=== PATIENT | female | born 1955 | race African-American/Black ===

== ENCOUNTER 2016-09-04 01:33 | Emergency (ER) | payer MEDICAID, MEDICARE, OTHER ==
[~2016-09-04] VITALS: Ht 172.7 cm; Wt 82.0 kg
[~2016-09-04 01:33] MED LIST: GLIP5TAB12 PO; METF-240 PO
[2016-09-04 03:11] VITALS: BP 144/90
== END 2016-09-04 04:00 | disposition home or self-care (01) ==
LOC: ER 01:57
DX: K64.4 Residual hemorrhoidal skin tags (principal); K59.00 Constipation, unspecified; K62.89 Other specified diseases of anus and rectum; S80.211A Abrasion, right knee, initial encounter; X58.XXXA Exposure to other specified factors, initial encounter; Y93.9 Activity, unspecified; Y92.89 Other specified places as the place of occurrence of the external cause; Y99.9 Unspecified external cause status; F17.210 Nicotine dependence, cigarettes, uncomplicated
CPT/HCPCS: 99283

== ENCOUNTER 2016-10-29 01:42 | Emergency (ER) | payer MEDICARE ==
[~2016-10-29] VITALS: Ht 172.7 cm; Wt 86.0 kg
[~2016-10-29 01:42] MED LIST changes: -METF-240 PO; +METF500T4 PO
[2016-10-29] MEDS ORDERED: ACETAMINOPHEN 650MG/20.3ML UDC PO ONE (04:30)
[2016-10-29 07:40] VITALS: BP 119/70
== END 2016-10-29 08:30 | disposition home or self-care (01) ==
LOC: ER 01:43
DX: K64.8 Other hemorrhoids (principal); K64.4 Residual hemorrhoidal skin tags; E11.9 Type 2 diabetes mellitus without complications; I10 Essential (primary) hypertension
CPT/HCPCS: 99283

== ENCOUNTER 2016-11-12 00:27 | Emergency (ER) | payer MEDICARE ==
[~2016-11-12] VITALS: Ht 170.2 cm; Wt 82.0 kg
[2016-11-12 08:47] VITALS: BP 145/78
== END 2016-11-12 08:49 | disposition home or self-care (01) ==
LOC: ER 00:35
DX: K64.4 Residual hemorrhoidal skin tags (principal); I10 Essential (primary) hypertension; E11.9 Type 2 diabetes mellitus without complications; F17.200 Nicotine dependence, unspecified, uncomplicated; Z98.890 Other specified postprocedural states
CPT/HCPCS: 99283

== ENCOUNTER 2017-03-05 21:55 | Emergency (ER) | payer MEDICARE ==
[~2017-03-05] VITALS: Ht 172.7 cm; Wt 82.0 kg
[2017-03-05 22:11] VITALS: BP 157/79
== END 2017-03-06 01:10 | disposition left against medical advice (07) ==
LOC: ER 21:55
DX: Z53.21 Procedure and treatment not carried out due to patient leaving prior to being seen by health care provider (principal)

== ENCOUNTER 2017-03-06 11:00 | Emergency (ER) | payer MEDICARE ==
[~2017-03-06] VITALS: Ht 172.7 cm; Wt 84.0 kg
[2017-03-06 11:28] VITALS: BP 121/79
== END 2017-03-06 15:30 | disposition left against medical advice (07) ==
LOC: ER 14:16
DX: Z53.21 Procedure and treatment not carried out due to patient leaving prior to being seen by health care provider (principal); I10 Essential (primary) hypertension; E11.9 Type 2 diabetes mellitus without complications; F17.210 Nicotine dependence, cigarettes, uncomplicated

== ENCOUNTER 2017-03-06 16:06 | Emergency (ER) | payer MEDICARE | END 2017-03-06 18:08 | disposition left against medical advice (07) | LOC: ER 18:01 | DX: Z53.21 Procedure and treatment not carried out due to patient leaving prior to being seen by health care provider (principal) ==

== ENCOUNTER 2017-03-11 22:24 | Emergency (ER) | payer SELFPAY ==
[~2017-03-11] VITALS: Ht 165.1 cm; Wt 95.5 kg
[2017-03-11 23:46] LABS: CHLORIDE 108 mEq/L (98-107)
[2017-03-11 23:48] LABS: BASOPHILS % 0.8 % (0.0-2.0); EOSINOPHILS % 7.1 % (0.0-5.0); HEMOGLOBIN. 12.2 g/dL (12.0-16.0); LYMPHOCYTES % 27.1 % (20.0-50.0); MEAN CORPUSCULAR HEMOGLOBIN 25.9 pg (28.0-32.0); MEAN CORPUSCULAR VOLUME 76.5 fL (81.0-99.0); MEAN PLATELET VOLUME 7.6 fl (7.4-10.4); MONOCYTES % 9.4 % (2.0-8.0); NEUTROPHILS % 55.6 % (40.0-76.0); PLATELET 263 x1000/uL (130-400); RED BLOOD CELL COUNT 4.71 mill/uL (4.2-5.4); RED CELL DISTRIBUTION WIDTH 15.7 % (11.6-14.6)
[2017-03-11 23:56] LABS: CARBON DIOXIDE 27 mEq/L (21-32)
[2017-03-12] MEDS ORDERED: POTASSIUM CHLORIDE 20MEQ TABLET SR PO ONE (00:30)
[2017-03-13] MEDS ORDERED: PERMETHRIN 5% CREAM 60GM TOP ONE ×2 (10:15→14:30)
[2017-03-13] MEDS ORDERED: PIPERONYL/PYRETHRINS (RID)120 ML SHAMPOO TOP ONE (14:30)
[2017-03-13] MEDS ORDERED: ALBUTEROL (0.083%) 2.5MG/3ML NEB HHN STA (19:15)
[2017-03-13 19:53] LABS: BASOPHILS % 0.6 % (0.0-2.0); EOSINOPHILS % 4.4 % (0.0-5.0); HEMATOCRIT. 34.1 % (36.0-48.0); HEMOGLOBIN. 11.5 g/dL (12.0-16.0); LYMPHOCYTES % 28.1 % (20.0-50.0); MEAN CORPUSCULAR HEMOGLOBIN 25.9 pg (28.0-32.0); MEAN CORPUSCULAR VOLUME 76.5 fL (81.0-99.0); MEAN PLATELET VOLUME 7.6 fl (7.4-10.4); MONOCYTES % 8.9 % (2.0-8.0); PLATELET 257 x1000/uL (130-400); RED BLOOD CELL COUNT 4.45 mill/uL (4.2-5.4); RED CELL DISTRIBUTION WIDTH 15.7 % (11.6-14.6)
[2017-03-13 20:00] LABS: INR 1.1
[2017-03-13 20:06] LABS: CARBON DIOXIDE 29 mEq/L (21-32); CHLORIDE 107 mEq/L (98-107); CREATINE KINASE 187 IU/L (26-192)
[2017-03-13 20:07] LABS: TROPONIN I < 0.02 ng/mL (0.00-0.04)
[2017-03-13 20:09] LABS: CREATINE KINASE MB FRACTION 1.4 ng/mL (0.5-3.6)
[2017-03-14] MEDS ORDERED: POTASSIUM CHLORIDE 20MEQ TABLET SR PO ONE (00:15)
[2017-03-14 07:49] VITALS: BP 131/72
== END 2017-03-14 09:12 | disposition home or self-care (01) ==
LOC: ER 22:24 → CANRESERV 03-13 18:38 → ENRESERV 03-13 18:38 → CANBEDREQ 03-13 21:38 → ER 03-14 09:12
DX: R06.00 Dyspnea, unspecified (principal); I10 Essential (primary) hypertension; F20.9 Schizophrenia, unspecified; E11.9 Type 2 diabetes mellitus without complications; F17.210 Nicotine dependence, cigarettes, uncomplicated
CPT/HCPCS: 36415; 71010; 80053; 82550; 82553; 83690; 83880; 84443; 84484; 85025; 85610; 85730; 93005; 94640; 99285; 99406; J7611

== ENCOUNTER 2017-08-20 01:03 | Emergency (ER) | payer SELFPAY ==
[~2017-08-20] VITALS: Ht 172.7 cm; Wt 79.4 kg
[2017-08-20 04:31] VITALS: BP 142/66
== END 2017-08-20 04:53 | disposition home or self-care (01) ==
LOC: ER 01:03
DX: S20.469A Insect bite (nonvenomous) of unspecified back wall of thorax, initial encounter (principal); S00.06XA Insect bite (nonvenomous) of scalp, initial encounter; E11.9 Type 2 diabetes mellitus without complications; F20.9 Schizophrenia, unspecified; F17.200 Nicotine dependence, unspecified, uncomplicated; Z79.84 Long term (current) use of oral hypoglycemic drugs; W57.XXXA Bitten or stung by nonvenomous insect and other nonvenomous arthropods, initial encounter; Y93.89 Activity, other specified; Y92.013 Bedroom of single-family (private) house as the place of occurrence of the external cause
CPT/HCPCS: 99283

== ENCOUNTER 2017-08-23 06:19 | Emergency (ER) | payer SELFPAY ==
[~2017-08-23] VITALS: Ht 165.1 cm; Wt 64.0 kg
[2017-08-23 06:21] VITALS: BP 146/88
== END 2017-08-23 07:21 | disposition home or self-care (01) ==
LOC: ER 06:19
DX: R21 Rash and other nonspecific skin eruption (principal); E11.9 Type 2 diabetes mellitus without complications; F20.9 Schizophrenia, unspecified; I10 Essential (primary) hypertension; Z79.84 Long term (current) use of oral hypoglycemic drugs
CPT/HCPCS: 99283

== ENCOUNTER 2017-09-11 01:15 | Emergency (ER) | payer SELFPAY ==
[~2017-09-11] VITALS: Ht 172.7 cm; Wt 81.0 kg
[2017-09-11] MEDS ORDERED: DIPHENHYDRAMINE 25MG CAPSULE PO ONE (08:30)
[2017-09-11 10:26] VITALS: BP 159/87
== END 2017-09-11 10:31 | disposition home or self-care (01) ==
LOC: ER 01:20
DX: T14.8XXA Other injury of unspecified body region, initial encounter (principal); W57.XXXA Bitten or stung by nonvenomous insect and other nonvenomous arthropods, initial encounter; Y93.89 Activity, other specified; Y92.89 Other specified places as the place of occurrence of the external cause; L29.9 Pruritus, unspecified; E11.9 Type 2 diabetes mellitus without complications; I10 Essential (primary) hypertension; Z79.84 Long term (current) use of oral hypoglycemic drugs
CPT/HCPCS: 99283; Z7610; Q0163

== ENCOUNTER 2017-09-28 22:44 | Emergency (ER) | payer SELFPAY ==
[~2017-09-28] VITALS: Ht 172.7 cm; Wt 79.0 kg
[2017-09-29 04:22] VITALS: BP 135/75
== END 2017-09-29 05:10 | disposition home or self-care (01) ==
LOC: ER 22:44
DX: R21 Rash and other nonspecific skin eruption (principal); E11.9 Type 2 diabetes mellitus without complications; F17.200 Nicotine dependence, unspecified, uncomplicated; Z79.84 Long term (current) use of oral hypoglycemic drugs
CPT/HCPCS: 99283

== ENCOUNTER 2017-10-03 20:10 | Emergency (ER) | payer SELFPAY ==
[~2017-10-03] VITALS: Ht 167.6 cm; Wt 81.0 kg
[2017-10-03 20:14] VITALS: BP 148/74
== END 2017-10-04 01:00 | disposition left against medical advice (07) ==
LOC: ER 20:10
DX: I10 Essential (primary) hypertension (principal); E11.9 Type 2 diabetes mellitus without complications; L29.9 Pruritus, unspecified; F17.200 Nicotine dependence, unspecified, uncomplicated; Z53.21 Procedure and treatment not carried out due to patient leaving prior to being seen by health care provider

== ENCOUNTER 2017-10-04 06:30 | Emergency (ER) | payer SELFPAY ==
[~2017-10-04] VITALS: Ht 172.7 cm; Wt 79.0 kg
[2017-10-04] MEDS ORDERED: IBUPROFEN 600MG TABLET PO ONE (09:30)
[2017-10-04 10:14] VITALS: BP 164/83
== END 2017-10-04 10:34 | disposition home or self-care (01) ==
LOC: ER 06:49
DX: L29.9 Pruritus, unspecified (principal); Z76.0 Encounter for issue of repeat prescription; F20.9 Schizophrenia, unspecified; I10 Essential (primary) hypertension; E11.9 Type 2 diabetes mellitus without complications; F17.200 Nicotine dependence, unspecified, uncomplicated; Z79.84 Long term (current) use of oral hypoglycemic drugs
CPT/HCPCS: 82962; 99283

== ENCOUNTER 2017-10-06 19:32 | Emergency (ER) | payer SELFPAY ==
[~2017-10-06] VITALS: Ht 167.6 cm; Wt 63.5 kg
[2017-10-07] MEDS ORDERED: GABAPENTIN 300MG CAPSULE PO ONE (05:45)
[2017-10-07 07:19] VITALS: BP 163/82
== END 2017-10-07 08:02 | disposition home or self-care (01) ==
LOC: ER 19:42
DX: E11.40 Type 2 diabetes mellitus with diabetic neuropathy, unspecified (principal); I10 Essential (primary) hypertension; M79.642 Pain in left hand; Z79.84 Long term (current) use of oral hypoglycemic drugs
CPT/HCPCS: 82962; 99283; Z7610

== ENCOUNTER 2017-10-09 00:36 | Emergency (ER) | payer SELFPAY ==
[~2017-10-09] VITALS: Ht 172.7 cm; Wt 79.1 kg
[2017-10-09] MEDS ORDERED: DIPHENHYDRAMINE 25MG CAPSULE PO ONE (06:30)
[2017-10-09 06:34] VITALS: BP 127/78
== END 2017-10-09 07:22 | disposition home or self-care (01) ==
LOC: ER 01:25
DX: R21 Rash and other nonspecific skin eruption (principal); E11.9 Type 2 diabetes mellitus without complications; F20.9 Schizophrenia, unspecified; F17.200 Nicotine dependence, unspecified, uncomplicated; Z79.84 Long term (current) use of oral hypoglycemic drugs
CPT/HCPCS: 99283; Z7610; Q0163

== ENCOUNTER 2017-10-12 22:46 | Emergency (ER) | payer MEDICARE ==
[~2017-10-12] VITALS: Ht 167.6 cm; Wt 80.0 kg
[2017-10-13 01:15] VITALS: BP 150/77
== END 2017-10-13 01:58 | disposition home or self-care (01) ==
LOC: ER 22:46
DX: R21 Rash and other nonspecific skin eruption (principal); E11.40 Type 2 diabetes mellitus with diabetic neuropathy, unspecified; F20.9 Schizophrenia, unspecified; Z79.84 Long term (current) use of oral hypoglycemic drugs
CPT/HCPCS: 99283

== ENCOUNTER 2017-10-22 06:08 | Emergency (ER) | payer SELFPAY ==
[~2017-10-22] VITALS: Ht 172.7 cm; Wt 77.0 kg
[2017-10-22] MEDS ORDERED: KETOROLAC 30MG/ML VIAL IM ONE (09:45)
[2017-10-22] MEDS ORDERED: DIPHENHYDRAMINE 25MG CAPSULE PO ONE (09:45)
[2017-10-22 10:05] VITALS: BP 143/83
== END 2017-10-22 10:05 | disposition home or self-care (01) ==
LOC: ER 06:08
DX: T14.8XXA Other injury of unspecified body region, initial encounter (principal); W57.XXXA Bitten or stung by nonvenomous insect and other nonvenomous arthropods, initial encounter; R51 Headache; F20.9 Schizophrenia, unspecified; E11.9 Type 2 diabetes mellitus without complications; Z79.84 Long term (current) use of oral hypoglycemic drugs; Y93.89 Activity, other specified; Y92.89 Other specified places as the place of occurrence of the external cause
CPT/HCPCS: 96372; 99283; J1885; Z7610; Q0163

== ENCOUNTER 2017-10-26 10:25 | Emergency (ER) | payer MEDICARE ==
[~2017-10-26] VITALS: Ht 172.7 cm; Wt 79.0 kg
[2017-10-26 11:32] VITALS: BP 126/77
[2017-10-26] MEDS ORDERED: KETOROLAC 60MG/2ML VIAL IM ONE (12:15)
== END 2017-10-26 12:51 | disposition home or self-care (01) ==
LOC: ER 11:59
DX: R51 Headache (principal); I10 Essential (primary) hypertension; E11.9 Type 2 diabetes mellitus without complications; Z79.84 Long term (current) use of oral hypoglycemic drugs; Z98.890 Other specified postprocedural states
CPT/HCPCS: 96372; 99283; J1885

== ENCOUNTER 2017-10-29 01:16 | Emergency (ER) | payer MEDICARE ==
[~2017-10-29] VITALS: Ht 172.7 cm; Wt 79.0 kg
[2017-10-29] MEDS ORDERED: KETOROLAC 30MG/ML VIAL IV STA (02:40)
[2017-10-29] MEDS ORDERED: CYCLOBENZAPRINE 10MG TABLET PO SCH (02:45)
[2017-10-29 03:29] LABS: CLARITY URINE CLEAR (CLEAR); COLOR URINE YELLOW (YELLOW); KETONES URINE NEGATIVE (NEGATIVE); LEUKOCYTE ESTERASE URINE NEGATIVE (NEGATIVE); NITRITE URINE NEGATIVE (NEGATIVE); OCCULT BLOOD URINE NEGATIVE (NEGATIVE); PH URINE 5.5 (4.5-8.0); PROTEIN URINE NEGATIVE (NEGATIVE); SPECIFIC GRAVITY URINE 1.013 (1.005-1.030)
[2017-10-29 03:45] VITALS: BP 152/89
== END 2017-10-29 04:05 | disposition home or self-care (01) ==
LOC: ER 01:16
DX: G44.89 Other headache syndrome (principal); R03.0 Elevated blood-pressure reading, without diagnosis of hypertension; E11.9 Type 2 diabetes mellitus without complications; Z90.710 Acquired absence of both cervix and uterus
CPT/HCPCS: 81003; 96374; 99284; J1885

== ENCOUNTER 2017-11-19 00:20 | Emergency (ER) | payer SELFPAY ==
[~2017-11-19] VITALS: Ht 170.2 cm; Wt 78.0 kg
[2017-11-19 06:24] VITALS: BP 132/74
== END 2017-11-19 08:07 | disposition home or self-care (01) ==
LOC: ER 00:59
DX: Z76.0 Encounter for issue of repeat prescription (principal); E11.9 Type 2 diabetes mellitus without complications; I10 Essential (primary) hypertension; F17.200 Nicotine dependence, unspecified, uncomplicated; Z79.84 Long term (current) use of oral hypoglycemic drugs
CPT/HCPCS: 82962; 99283

== ENCOUNTER 2017-11-30 22:48 | Emergency (ER) | payer SELFPAY ==
[~2017-11-30] VITALS: Ht 172.7 cm; Wt 79.0 kg
[~2017-11-30 22:48] MED LIST changes: -METF500T4 PO; +METF500T6 PO
[2017-12-01] MEDS ORDERED: ACETAMINOPHEN 325MG TABLET PO STA (07:33)
[2017-12-01 07:58] LABS: EOSINOPHILS % 1.5 % (0.0-5.0); HEMATOCRIT. 32.5 % (36.0-48.0); HEMOGLOBIN. 10.6 g/dL (12.0-16.0); LYMPHOCYTES % 28.1 % (20.0-50.0); MEAN CORPUSCULAR HEMOGLOBIN 20.8 pg (28.0-32.0); MEAN CORPUSCULAR VOLUME 63.8 fL (81.0-99.0); MEAN PLATELET VOLUME 8.3 fl (7.4-10.4); MONOCYTES % 12.2 % (2.0-8.0); NEUTROPHILS % 56.9 % (40.0-76.0); PLATELET 265 x1000/uL (130-400); RED BLOOD CELL COUNT 5.09 mill/uL (4.2-5.4); RED CELL DISTRIBUTION WIDTH 21.2 % (11.6-14.6)
[2017-12-01 08:03] LABS: CHLORIDE 107 mEq/L (98-107)
[2017-12-01 08:06] LABS: ETHANOL BLOOD < 10 mg/dL
[2017-12-01 08:28] LABS: BASOPHILS % 1.3 % (0.0-2.0)
[2017-12-01] MEDS ORDERED: CEFTRIAXONE SODIUM 1 G/VIAL IM ONE (10:30)
[2017-12-01 15:15] LABS: CLARITY URINE CLEAR (CLEAR); COLOR URINE YELLOW (YELLOW); KETONES URINE NEGATIVE (NEGATIVE); LEUKOCYTE ESTERASE URINE NEGATIVE (NEGATIVE); NITRITE URINE NEGATIVE (NEGATIVE); OCCULT BLOOD URINE NEGATIVE (NEGATIVE); PROTEIN URINE NEGATIVE (NEGATIVE); SPECIFIC GRAVITY URINE 1.008 (1.005-1.030); UROBILINOGEN URINE 0.2 E.U./dL (0.2-1.0)
[2017-12-01 15:30] LABS: *AMPHETAMINES SCREEN URINE NEGATIVE (NEGATIVE); *BARBITURATES SCREEN URINE NEGATIVE (NEGATIVE); *BENZODIAZEPINES SCREEN URINE NEGATIVE (NEGATIVE); *COCAINE SCREEN URINE NEGATIVE (NEGATIVE); METHADONE URINE SCREEN NEGATIVE (NEGATIVE); OPIATES URINE SCREEN NEGATIVE (NEGATIVE)
[2017-12-01 15:31] LABS: CANNABINOID URINE SCREEN NEGATIVE (NEGATIVE); PHENCYCLIDINE URINE SCREEN NEGATIVE (NEGATIVE)
[2017-12-02 14:55] VITALS: BP 116/68
== END 2017-12-02 15:19 | disposition home or self-care (01) ==
LOC: ER 23:40
DX: M54.30 Sciatica, unspecified side (principal); E11.9 Type 2 diabetes mellitus without complications; Z59.0 Homelessness
CPT/HCPCS: 99284

== ENCOUNTER 2018-07-04 14:45 | Emergency (ER) | payer SELFPAY ==
[~2018-07-04] VITALS: Ht 172.7 cm; Wt 77.0 kg
[~2018-07-04 14:45] MED LIST changes: +METF-414 PO; -METF500T6 PO
[2018-07-04 18:37] VITALS: BP 142/82
== END 2018-07-04 18:27 | disposition home or self-care (01) ==
LOC: ER 14:45
DX: I10 Essential (primary) hypertension (principal); E11.65 Type 2 diabetes mellitus with hyperglycemia; F17.210 Nicotine dependence, cigarettes, uncomplicated; E66.9 Obesity, unspecified; Z76.0 Encounter for issue of repeat prescription; Z68.25 Body mass index [BMI] 25.0-25.9, adult; Z71.6 Tobacco abuse counseling; Z79.84 Long term (current) use of oral hypoglycemic drugs
CPT/HCPCS: 82962; 99283; 99406

== ENCOUNTER 2018-09-11 16:42 | Emergency (ER) | payer SELFPAY ==
[~2018-09-11] VITALS: Ht 172.7 cm; Wt 79.0 kg
[2018-09-11 17:04] VITALS: BP 141/78
== END 2018-09-11 18:35 | disposition home or self-care (01) ==
LOC: ER 16:42
DX: E11.9 Type 2 diabetes mellitus without complications (principal); I10 Essential (primary) hypertension; F17.200 Nicotine dependence, unspecified, uncomplicated; Z98.890 Other specified postprocedural states
CPT/HCPCS: 82962; 99283

== ENCOUNTER 2018-09-23 20:04 | Emergency (ER) | payer SELFPAY ==
[~2018-09-23] VITALS: Ht 170.2 cm; Wt 82.0 kg
[2018-09-23 23:39] VITALS: BP 181/96
== END 2018-09-23 23:44 | disposition home or self-care (01) ==
LOC: ER 20:04
DX: I10 Essential (primary) hypertension (principal); E11.9 Type 2 diabetes mellitus without complications; F17.200 Nicotine dependence, unspecified, uncomplicated; Z79.899 Other long term (current) drug therapy; Z98.890 Other specified postprocedural states
CPT/HCPCS: 82962; 99283

== ENCOUNTER 2018-11-16 13:55 | Emergency (ER) | payer MEDICARE ==
[~2018-11-16] VITALS: Ht 167.6 cm; Wt 80.0 kg
[2018-11-16 17:37] VITALS: BP 140/78
== END 2018-11-16 17:37 | disposition home or self-care (01) ==
LOC: ER 13:55
DX: I10 Essential (primary) hypertension (principal); E11.9 Type 2 diabetes mellitus without complications; F17.200 Nicotine dependence, unspecified, uncomplicated; Z98.890 Other specified postprocedural states; Z79.899 Other long term (current) drug therapy
CPT/HCPCS: 99283

== ENCOUNTER 2018-12-15 14:10 | Emergency (ER) | payer SELFPAY ==
[~2018-12-15] VITALS: Ht 172.7 cm; Wt 86.0 kg
[2018-12-15 15:45] VITALS: BP 145/69
== END 2018-12-15 15:55 | disposition home or self-care (01) ==
LOC: ER 14:10
DX: J06.9 Acute upper respiratory infection, unspecified (principal); I10 Essential (primary) hypertension; E11.9 Type 2 diabetes mellitus without complications; F17.210 Nicotine dependence, cigarettes, uncomplicated; Z79.84 Long term (current) use of oral hypoglycemic drugs
CPT/HCPCS: 99283

== ENCOUNTER 2018-12-26 18:21 | Emergency (ER) | payer MEDICARE ==
[~2018-12-26] VITALS: Ht 172.7 cm; Wt 84.0 kg
[2018-12-26] MEDS ORDERED: ALT10 PO (18:40)
[2018-12-26 20:40] VITALS: BP 169/88
== END 2018-12-26 21:07 | disposition home or self-care (01) ==
LOC: ER 18:21
DX: K64.4 Residual hemorrhoidal skin tags (principal); I10 Essential (primary) hypertension; Z76.0 Encounter for issue of repeat prescription; E11.9 Type 2 diabetes mellitus without complications
CPT/HCPCS: 99283

== ENCOUNTER 2018-12-29 14:54 | Emergency (ER) | payer MEDICARE ==
[~2018-12-29] VITALS: Ht 167.6 cm; Wt 86.0 kg
[~2018-12-29 14:54] MED LIST changes: +ALT10 PO
[2018-12-29 15:14] VITALS: BP 138/63
== END 2018-12-29 15:46 | disposition home or self-care (01) ==
LOC: ER 14:54
DX: Z76.0 Encounter for issue of repeat prescription (principal); I10 Essential (primary) hypertension; K64.9 Unspecified hemorrhoids
CPT/HCPCS: 99283

== ENCOUNTER 2019-01-26 12:56 | Emergency (ER) | payer SELFPAY ==
[~2019-01-26] VITALS: Ht 172.7 cm; Wt 115.0 kg
[2019-01-26 14:06] VITALS: BP 175/88
== END 2019-01-26 18:40 | disposition left against medical advice (07) ==
LOC: ER 16:49
DX: Z53.21 Procedure and treatment not carried out due to patient leaving prior to being seen by health care provider (principal)

== ENCOUNTER 2019-01-27 11:05 | Emergency (ER) | payer SELFPAY ==
[~2019-01-27] VITALS: Ht 170.2 cm; Wt 85.0 kg
[2019-01-27 13:20] VITALS: BP 156/89
== END 2019-01-27 13:21 | disposition home or self-care (01) ==
LOC: ER 11:05
DX: Z76.0 Encounter for issue of repeat prescription (principal); E11.9 Type 2 diabetes mellitus without complications; I10 Essential (primary) hypertension; F17.200 Nicotine dependence, unspecified, uncomplicated; E07.9 Disorder of thyroid, unspecified; Z98.890 Other specified postprocedural states; Z79.899 Other long term (current) drug therapy
CPT/HCPCS: 99283

== ENCOUNTER 2019-06-03 23:41 | Emergency (ER) | payer MEDICARE ==
[~2019-06-03] VITALS: Ht 172.7 cm; Wt 86.5 kg
[2019-06-04 01:26] VITALS: BP 145/75
== END 2019-06-04 01:27 | disposition home or self-care (01) ==
LOC: ER 23:41
DX: K64.4 Residual hemorrhoidal skin tags (principal); F17.290 Nicotine dependence, other tobacco product, uncomplicated; E11.9 Type 2 diabetes mellitus without complications; I10 Essential (primary) hypertension; Z98.890 Other specified postprocedural states
CPT/HCPCS: 99282